=== PATIENT | female | born 1990 | race Two or more races ===

== ENCOUNTER → 2018-03-09 16:45 | Outpatient (CLI) | payer MEDICAID, SELFPAY ==
[2018-03-16 11:32] LABS: HPV Reflexed? NOT INDICATED
== END ==
PROVIDERS: Visit Provider Obstetrics & Gynecology
DX: Z12.4 Encounter for screening for malignant neoplasm of cervix (principal)
CPT/HCPCS: 88175; G0145

== ENCOUNTER → 2018-03-23 16:27 | Outpatient (CLI) | payer MEDICAID, SELFPAY ==
--- NOTE | 2018-03-23 | IMM_PTH ---
PATIENT: MELO DIAL LOC: [facility] U#:[id number] AGE/SX: 35/F ROOM: RE03/23/[address]: Dr. Bipin Spangler MD : 1990 BED: DIS: SPEC #: [id number] RECD: 03/25/18 09:52 STATUS: YENIFER REQ #: [id number] PANCHO: 03/23/18 00:[address]: Bipin Spangler DEPT: IMMUNOHISTOCHEMISTRY RECD BY: Tosha Rebollar ENTERED: 03/25/18 09:53 SP TYPE: IMMUNO OTHR DR: Out of Town Doctor Tissues: A - Uterine cervix, NOS B - Endocervical Procedures: p16 (initial) KI-67 (add) PHYSICIAN & INSTITUTION [facility] [phone] SPECIMEN INFORMATION: Tissue Source: A ? Cervical biopsy at 3 o?clock, B - ECC Clinical Info: WILLEM Specimen Number: [id number] A & B CPT code: 43796 x2, 34218 x2 METHODOLOGY: Deparaffinized sections of prefer/formalin-fixed tissue or PAP/DQ stained slides are incubated with monoclonal/polyclonal antibodies/oligonucleotide probes. Localization is made via biotin free immunoperoxidase method. Appropriate controls are performed and reacted as expected. Results on target cell population are indicated in the following table: RESULTS: ANTIBODY / CLONE RESULT Block A P16 (E6H4) positive, focal and patchy Ki-67 (30-9) positive, low Block B P16 (E6H4) positive, focal and patchy Ki-67 (30-9) positive, low These tests were developed and their performance characteristics determined by [facility]. They may not have been cleared or approved by the U.[place]. Food and Drug Administration. The FDA has determined that such clearance or approval is not necessary. INTERPRETATION: A. Cervix at 3 o?clock, biopsy: Focal changes consistent with HPV cytopathic effects. B. ECC: Focal changes consistent with HPV cytopathic effects. SJ:saul 03/26/18
--- NOTE | 2018-03-23 14:40 | CER_PTH ---
PATIENT: MELO DIAL LOC: [facility] U#:[id number] AGE/SX: 35/F ROOM: RE03/23/[address]: Dr. Bipin Spangler MD : 1990 BED: DIS: SPEC #: [id number] RECD: 03/23/18 16:23 STATUS: YENIFER LD #: [id number] PANCHO: 03/23/18 14:[address]: Bipin Spangler DEPT: SURGICAL PATHOLOGY RECD BY: Agustin Workman Tissues: A - Uterine cervix, NOS B - Endocervical Procedures: Surgery Specimen Level IV HEADER OPERATION: Colposcopy PRE-OP DIAGNOSIS: LGSIL pap 03/09/18 TISSUE SUBMITTED: A. Cervical biopsy at 3 o?clock, B. ECC MICROSCOPIC DIAGNOSIS A. Cervix, 3 o?clock, biopsy: Focal changes consistent with HPV cytopathic effects. Focal chronic inflammation. B. ECC: Focal changes consistent with HPV cytopathic effects. Fragments of benign endocervical mucosa with chronic inflammation and squamous metaplasia. See comment. JACQUIE:saul 03/25/18 COMMENT Results from immunohistochemistry ([id number]) for surrogate HPV marker (p16) will be reported separately. MICROSCOPIC DESCRIPTION Slides are reviewed. GROSS DESCRIPTION A - Received in fixative is one container labeled with the patient's name and designated cervical biopsy 3 o'clock. The specimen consists of one irregular fragment of light dawkins soft tissue that measures 0.4 x 0.2 x 0.1 cm. The specimen is totally submitted in one cassette. B - Received in fixative is one container labeled with the patient's name and designated ECC. The specimen consists of multiple fragments of hemorrhagic mucoid tissue that in aggregate measure 2.5 x 1 x 0.1 cm. The specimen is totally submitted in one cassette. / JACQUIE:asul 03/24/18 TC:5 CPT: 22858 x2
== END ==
PROVIDERS: Visit Provider Obstetrics & Gynecology
DX: R87.612 Low grade squamous intraepithelial lesion on cytologic smear of cervix (LGSIL) (principal)
CPT/HCPCS: 88305; 88341; 88342

== ENCOUNTER → 2018-08-31 16:36 | Outpatient (CLI) | payer MEDICAID, SELFPAY ==
[2018-09-04 14:11] LABS: HPV Reflexed? NOT INDICATED
== END ==
PROVIDERS: Visit Provider Obstetrics & Gynecology
DX: R87.612 Low grade squamous intraepithelial lesion on cytologic smear of cervix (LGSIL) (principal)
CPT/HCPCS: 88175; G0145

== ENCOUNTER → 2019-03-17 15:03 | Outpatient (CLI) | payer MEDICAID, SELFPAY ==
[2019-03-24 14:16] LABS: HPV Reflexed? NOT INDICATED
== END ==
PROVIDERS: Visit Provider Obstetrics & Gynecology
DX: Z12.4 Encounter for screening for malignant neoplasm of cervix (principal)
CPT/HCPCS: 88175; G0145

== ENCOUNTER → 2019-04-21 15:00 | Outpatient (CLI) | payer MEDICAID, SELFPAY ==
--- NOTE | 2019-04-21 | CER_PTH ---
PATIENT: MELO DIAL LOC: [facility] U#:[id number] AGE/SX: 35/F ROOM: RE04/21/[address]: Dr. Bipin Spangler MD : 1990 BED: DIS: SPEC #: [id number] RECD: 04/21/19 17:17 STATUS: YENIFER RETyshawn #: [id number] PANCHO: 04/21/19 00:[address]: Bipin Spangler DEPT: SURGICAL PATHOLOGY RECD BY: Leonardo De La O ENTERED: 04/22/19 09:05 SP TYPE: CERV OTHR DR: Out of Town Doctor Tissues: Uterine cervix, NOS Procedures: Surgery Specimen Level IV HEADER OPERATION: Colposcopy PRE-OP DIAGNOSIS: LGSIL TISSUE SUBMITTED: ECC MICROSCOPIC DIAGNOSIS ECC: Fragments of benign endocervical epithelium, benign endocervical mucosa, blood and mucous, negative for dysplasia. See comment. JACQUIE:saul 04/25/19 COMMENT Please make reference to previous specimen ([id number]) cervix, 3 o'clock, biopsy and ECC with diagnosis of focal changes consistent with HPV cytopathic effects. Clinical correlation and appropriate follow up are necessary. MICROSCOPIC DESCRIPTION Slides are reviewed. GROSS DESCRIPTION Received in fixative is one container labeled with the patient's name and designated ECC. The specimen consists of multiple fragments of hemorrhagic dawkins mucoid tissue that in aggregate measure 3 x 2.5 x 0.3 cm. The specimen is totally submitted in one cassette. / SJ:rg 04/22/19 TC:4 CPT: 68541
== END ==
PROVIDERS: Referring Provider Obstetrics & Gynecology; Visit Provider Obstetrics & Gynecology
DX: R87.612 Low grade squamous intraepithelial lesion on cytologic smear of cervix (LGSIL) (principal)
CPT/HCPCS: 88305